=== PATIENT | male | born 1985 | race Caucasian/White ===

== ENCOUNTER 2019-07-07 13:57 | Emergency (ER) | payer MEDICAID ==
[~2019-07-07] VITALS: Ht 177.8 cm; Wt 74.8 kg
[2019-07-07 14:02] VITALS: BP 135/90
[2019-07-07] MEDS ORDERED: LORAZEPAM 1 MG TABLET PO ONE (14:30)
--- NOTE | 2019-07-07 14:30 | NUR ---
SEEN AND EXAMINED BY .
[2019-07-07] MEDS ORDERED: LORAZEPAM 1 MG TABLET ONE (14:34)
--- NOTE | 2019-07-07 15:30 | NUR ---
Patient discharged to home in stable condition. Written and verbal after care instructions given. Patient verbalizes understanding of instruction.
== END 2019-07-07 15:31 | disposition home or self-care (01) ==
LOC: ER 14:00
DX: F41.9 Anxiety disorder, unspecified (principal); F15.10 Other stimulant abuse, uncomplicated; I10 Essential (primary) hypertension